=== PATIENT | male | born 1970 | race Caucasian/White ===

== ENCOUNTER → 2024-07-03 06:15 | Day surgery (SDC) | payer OTHER, SELFPAY ==
[2024-07-03 12:44] LABS: Glucose - Point of Care 89 mg/dl (70-99)
== END ==
LOC: GI 06:15
PROVIDERS: ATTENDING PHYSICIAN Internal Medicine; FAMILY PHYSICIAN Family Medicine
DX: Z12.11 Encounter for screening for malignant neoplasm of colon (principal); D12.0 Benign neoplasm of cecum; D12.5 Benign neoplasm of sigmoid colon; D12.8 Benign neoplasm of rectum
CPT/HCPCS: 45385; 45380; 88305; 82962